=== PATIENT | male | born 1930 | race Caucasian/White ===

== ENCOUNTER 2017-05-05 17:57 | Inpatient (IN) | payer MEDICARE, BC, OTHER ==
[~2017-05-05] VITALS: Ht 172.7 cm; Wt 61.5 kg
[~2017-05-05 17:57] MED LIST: FINA5TAB11 PO; GABA-530 PO; HYDR-3686 PO; LACT-28 PO; NICO-687 TD; OLAN2.5T28 PO; TRAZ-143 PO; VENL-190 PO
[2017-05-05] MEDS ORDERED: normal saline 1000ML IV soln IVB ONE (18:30)
[2017-05-05] MEDS ORDERED: acetaminophen 650mg rectal suppository RC ONE (18:30)
[2017-05-05] MEDS ORDERED: ondansetron/PF 4mg/2ml inj IV ONE (18:35)
[2017-05-05 19:05] LABS: BASOPHILS % (AUTO) 0.1 % (0-1); EOSINOPHILS % (AUTO) 0 % (0-6); HEMATOCRIT 35.7 % (42.0-52.0); HEMOGLOBIN 12.2 g/dl (14.0-17.9); LYMPHOCYTES # (AUTO) 0.2 X10'3 (1.1-4.8); LYMPHOCYTES % (AUTO) 1.9 % (21-51); MEAN CORPUSCULAR HEMOGLOBIN 34.1 PG (27.0-31.0); MEAN CORPUSCULAR VOLUME 100.2 FL (78-98); MEAN PLATELET VOLUME 7.8 FL (7.4-10.4); MONOCYTES # (AUTO) 0.5 X10'3 (0-0.9); MONOCYTES % (AUTO) 4.4 % (2-12); NEUTROPHILS # (AUTO) 10.3 X10'3 (1.8-7.7); NEUTROPHILS % (AUTO) 93.6 % (42-75); PLATELET COUNT 195 X10'3 (140-440); RED BLOOD COUNT 3.57 X10'6 (4.70-6.10); RED CELL DISTRIBUTION WIDTH 13.8 % (11.5-14.5)
[2017-05-05 19:12] LABS: INR 1.1 INR; PARTIAL THROMBOPLASTIN TIME 24 SECONDS (22-32); PROTHROMBIN TIME 11.2 SECONDS (9.0-12.0)
[2017-05-05 19:17] LABS: CLARITY,URINE Cloudy (Clear); COLOR,URINE Yellow (Yellow); GLUCOSE, URINE Negative (Neg); KETONES,URINE Negative (Neg); LEUKOCYTE ESTERASE ,URINE Moderate (Neg); NITRITES, URINE Negative (Neg); OCCULT BLOOD,URINE Moderate (Neg); PH,URINE 5.5 (4.8-8.0); PROTEIN,URINE Negative (Neg)
[2017-05-05 19:25] LABS: UA COLLECTION TYPE FOLEY CATH
[2017-05-05 19:26] LABS: BACTERIA,URINE 4+ /HPF (Neg); SQUAMOUS EPITHELIAL CELL,UR FEW /LPF (FEW); WBC,URINE 20-30 /HPF (0-4)
[2017-05-05 19:28] LABS: ALANINE AMINOTRANSFERASE 23 U/L (12-78); ALBUMIN 2.9 G/DL (3.4-5.0); ALBUMIN/GLOBULIN RATIO 0.9 (1.1-1.5); ALKALINE PHOSPHATASE 76 IU/L (46-116); ANION GAP 7 (8-16); ASPARTATE AMINO TRANSFERASE 26 U/L (10-37); BILIRUBIN,TOTAL 0.3 MG/DL (0.1-1.0); BLOOD UREA NITROGEN 27 MG/DL (7-18); BUN/CREATININE RATIO 33.8 (5.4-32.0); CALCIUM 8.9 MG/DL (8.5-10.1); CHLORIDE 108 MMOL/L (99-107); GLUCOSE 139 MG/DL (70-104); SODIUM 142 MMOL/L (135-145); TOTAL CARBON DIOXIDE 27.2 MMOL/L (24-32); TOTAL PROTEIN 6.1 G/DL (6.4-8.2); eGFR > 90 ML/MIN
[2017-05-05 19:50] LABS: TOTAL CELLS COUNTED 100
[2017-05-05 19:51] LABS: LARGE PLATELETS FEW; PLATELET ESTIMATE NORMAL
[2017-05-05 19:52] LABS: GASTRIC OCCULT BLOOD POSITIVE (Neg)
[2017-05-05] MEDS ORDERED: piperacillin/tazo 3.375gm/50ml 50 ML IV SCH (21:30)
[2017-05-05] MEDS ORDERED: piperacillin/tazo 3.375gm/50ml 50 ML IV ONE (21:33)
[2017-05-05] MEDS ORDERED: NORepinephrine 8mg/ 250ml NS 250 ML IV SCH (22:15)
[2017-05-05] MEDS ORDERED: NORepinephrine 8mg/ 250ml NS 250 ML IV PRN (23:32)
[2017-05-05] MEDS ORDERED: magnesium hydroxide 30ml (MOM) UD suspension PO PRN (23:35)
[2017-05-05] MEDS ORDERED: morphine 2 MG/ML inj. syringe IV PRN ×2 (23:35)
[2017-05-05] MEDS ORDERED: acetaminophen 325mg tablet PO PRN ×2 (23:35)
[2017-05-05] MEDS ORDERED: ondansetron/PF 4mg/2ml inj IV PRN (23:35)
[2017-05-05] MEDS ORDERED: potassium Cl 40MEQ/250ML bag 250 ML IV PRN (23:35)
[2017-05-05] MEDS ORDERED: potassium Cl 20 mEq SR tablet PO PRN ×2 (23:35)
[2017-05-05] MEDS ORDERED: potassium Cl 40MEQ/250ML bag 250 ML IV SCH (23:35)
[2017-05-06 00:16] LABS: OXYGEN SATURATION (MIXED VEN) 80.6 % (60-80); PO2 MIXED VENOUS (TEMP COR) 58.9 mmHg (35-46)
[2017-05-06] MEDS: piperacillin/tazo 3.375gm/50ml 50 ML IV SCH ×4 (02:00→20:58)
[2017-05-06] MEDS: K, MAG and/or Phos replacement - Verify level? MC SCH ×2 (03:24→08:00)
[2017-05-06 04:33] VITALS: BP 90/51
[2017-05-06] MEDS ORDERED: albuterol 2.5 MG/3 ML nebule NEB PRN (04:50)
[2017-05-06 06:00] VITALS: BP 99/61
[2017-05-06 06:01] LABS: BASOPHILS % (AUTO) 0.2 % (0-1); EOSINOPHILS # (AUTO) 0.1 X10'3 (0-0.9); EOSINOPHILS % (AUTO) 1.4 % (0-6); HEMATOCRIT 31.7 % (42.0-52.0); HEMOGLOBIN 10.8 g/dl (14.0-17.9); LYMPHOCYTES # (AUTO) 0.4 X10'3 (1.1-4.8); LYMPHOCYTES % (AUTO) 3.9 % (21-51); MEAN CORPUSCULAR HEMOGLOBIN 34.3 PG (27.0-31.0); MEAN CORPUSCULAR VOLUME 100.8 FL (78-98); MEAN PLATELET VOLUME 8.3 FL (7.4-10.4); MONOCYTES # (AUTO) 0.4 X10'3 (0-0.9); MONOCYTES % (AUTO) 4.3 % (2-12); NEUTROPHILS # (AUTO) 8.4 X10'3 (1.8-7.7); NEUTROPHILS % (AUTO) 90.2 % (42-75); PLATELET COUNT 166 X10'3 (140-440); RED BLOOD COUNT 3.14 X10'6 (4.70-6.10); RED CELL DISTRIBUTION WIDTH 13.6 % (11.5-14.5); WHITE BLOOD COUNT 9.3 X10'3 (4.5-11.0)
[2017-05-06 07:23] LABS: ALANINE AMINOTRANSFERASE 20 U/L (12-78); ALBUMIN 2.4 G/DL (3.4-5.0); ALBUMIN/GLOBULIN RATIO 0.8 (1.1-1.5); ALKALINE PHOSPHATASE 64 IU/L (46-116); ANION GAP 8 (8-16); ASPARTATE AMINO TRANSFERASE 26 U/L (10-37); BILIRUBIN,TOTAL 0.7 MG/DL (0.1-1.0); BLOOD UREA NITROGEN 23 MG/DL (7-18); BUN/CREATININE RATIO 32.9 (5.4-32.0); CALCIUM 8.3 MG/DL (8.5-10.1); CHLORIDE 113 MMOL/L (99-107); GLUCOSE 102 MG/DL (70-104); POTASSIUM 4.2 MMOL/L (3.5-5.1); SODIUM 146 MMOL/L (135-145); TOTAL CARBON DIOXIDE 24.8 MMOL/L (24-32); TOTAL PROTEIN 5.4 G/DL (6.4-8.2); eGFR > 90 ML/MIN
[2017-05-06] MEDS: enoxaparin 40mg/0.4ml syringe SUBCUT SCH (07:52)
[2017-05-06] MEDS: pantoprazole 40 MG vial IV SCH (07:52)
[2017-05-06] MEDS: lactobacillus rhamnosus 10,000 MMU CELLS/CAPSULE PO SCH ×2 (07:53→17:30)
[2017-05-06] MEDS: normal saline 1000ml 1,000 ML IV SCH ×3 (09:32→14:08)
[2017-05-06 11:00] VITALS: BP 108/60
[2017-05-06] MEDS ORDERED: TAMS0.4C32 PO (13:26)
[2017-05-06] MEDS ORDERED: VENL75TA4 PO (13:26)
[2017-05-06] MEDS ORDERED: TRAZ-146 PO (13:26)
[2017-05-06] MEDS ORDERED: DOCU250C4 PO (13:26)
[2017-05-06] MEDS ORDERED: SENN-161 PO (13:26)
[2017-05-06] MEDS ORDERED: CLON0.5T4 PO (13:26)
[2017-05-06] MEDS ORDERED: HYDR-3686 PO (13:26)
[2017-05-06] MEDS ORDERED: OLAN10TA19 PO (13:26)
[2017-05-06] MEDS ORDERED: QUET100T33 PO (13:26)
[2017-05-06 15:00] VITALS: BP 106/50
[2017-05-06] MEDS ORDERED: docusate sod 250mg capsule PO PRN (15:00)
[2017-05-06] MEDS ORDERED: sennosides 8.6mg tablet PO PRN (15:00)
[2017-05-06] MEDS: clonazePAM 0.5mg tablet PO PRN (15:25)
[2017-05-06 18:00] VITALS: BP 95/52
[2017-05-06] MEDS: traZODone 50mg tablet PO SCH (21:00)
[2017-05-06] MEDS: venlafaxine 37.5mg tablet PO SCH (21:00)
[2017-05-06] MEDS ORDERED: non-formulary drug (Trazodone HCl 1 TAB) PO SCH (21:00)
[2017-05-06] MEDS: gabapentin 100mg capsule PO SCH (21:00)
[2017-05-06] MEDS ORDERED: VENLAFAXINE HCL PO SCH (21:00)
[2017-05-06] MEDS: quetiapine 100mg tablet PO SCH (21:01)
[2017-05-06] MEDS: olanzapine 10mg tablet PO SCH (21:01)
[2017-05-06 22:00] VITALS: BP 113/58
[2017-05-07] MEDS: piperacillin/tazo 3.375gm/50ml 50 ML IV SCH ×4 (01:29→19:44)
[2017-05-07] MEDS: clonazePAM 0.5mg tablet PO PRN (01:30)
[2017-05-07] MEDS: normal saline 1000ml 1,000 ML IV SCH ×2 (01:34→16:03)
[2017-05-07 05:00] LABS: BASOPHILS % (AUTO) 0.6 % (0-1); EOSINOPHILS # (AUTO) 0.3 X10'3 (0-0.9); EOSINOPHILS % (AUTO) 5.8 % (0-6); HEMATOCRIT 28.8 % (42.0-52.0); HEMOGLOBIN 9.8 g/dl (14.0-17.9); LYMPHOCYTES # (AUTO) 1.1 X10'3 (1.1-4.8); LYMPHOCYTES % (AUTO) 20.1 % (21-51); MEAN CORPUSCULAR HEMOGLOBIN 34.3 PG (27.0-31.0); MEAN CORPUSCULAR HGB CONC 34.1 % (33.0-36.5); MEAN CORPUSCULAR VOLUME 100.5 FL (78-98); MEAN PLATELET VOLUME 8.1 FL (7.4-10.4); MONOCYTES # (AUTO) 0.8 X10'3 (0-0.9); MONOCYTES % (AUTO) 14.7 % (2-12); NEUTROPHILS # (AUTO) 3.2 X10'3 (1.8-7.7); NEUTROPHILS % (AUTO) 58.8 % (42-75); PLATELET COUNT 146 X10'3 (140-440); RED BLOOD COUNT 2.87 X10'6 (4.70-6.10); RED CELL DISTRIBUTION WIDTH 13.9 % (11.5-14.5); WHITE BLOOD COUNT 5.4 X10'3 (4.5-11.0)
[2017-05-07 05:15] LABS: ALANINE AMINOTRANSFERASE 22 U/L (12-78); ALBUMIN 2.3 G/DL (3.4-5.0); ALBUMIN/GLOBULIN RATIO 0.9 (1.1-1.5); ALKALINE PHOSPHATASE 53 IU/L (46-116); ANION GAP 6 (8-16); ASPARTATE AMINO TRANSFERASE 27 U/L (10-37); BILIRUBIN,TOTAL 0.3 MG/DL (0.1-1.0); BLOOD UREA NITROGEN 21 MG/DL (7-18); CALCIUM 8.2 MG/DL (8.5-10.1); CHLORIDE 112 MMOL/L (99-107); GLUCOSE 87 MG/DL (70-104); POTASSIUM 3.6 MMOL/L (3.5-5.1); SODIUM 145 MMOL/L (135-145); TOTAL CARBON DIOXIDE 26.6 MMOL/L (24-32); TOTAL PROTEIN 4.9 G/DL (6.4-8.2); eGFR > 90 ML/MIN
[2017-05-07 06:00] VITALS: BP 103/56
[2017-05-07] MEDS: K, MAG and/or Phos replacement - Verify level? MC SCH (08:00)
[2017-05-07] MEDS: hydrOXYzine 25 MG tablet PO PRN (10:31)
[2017-05-07] MEDS: tamsulosin 0.4mg capsule PO SCH (10:31)
[2017-05-07] MEDS: lactobacillus rhamnosus 10,000 MMU CELLS/CAPSULE PO SCH ×2 (10:31→17:09)
[2017-05-07] MEDS: pantoprazole 40 MG vial IV SCH (10:32)
[2017-05-07] MEDS: enoxaparin 40mg/0.4ml syringe SUBCUT SCH (10:32)
[2017-05-07] MEDS: gabapentin 100mg capsule PO SCH ×3 (10:32→20:29)
[2017-05-07 11:00] VITALS: BP 115/63
[2017-05-07] MEDS: finasteride 5mg tablet PO SCH (13:37)
[2017-05-07 15:00] VITALS: BP 125/69
[2017-05-07 19:00] VITALS: BP 118/69
[2017-05-07] MEDS: olanzapine 10mg tablet PO SCH (20:29)
[2017-05-07] MEDS: traZODone 50mg tablet PO SCH (20:29)
[2017-05-07] MEDS: venlafaxine 37.5mg tablet PO SCH (20:29)
[2017-05-07] MEDS: quetiapine 100mg tablet PO SCH (20:29)
[2017-05-07 23:00] VITALS: BP 118/71
[2017-05-08] MEDS: piperacillin/tazo 3.375gm/50ml 50 ML IV SCH ×2 (01:46→09:18)
[2017-05-08 03:00] VITALS: BP 136/76
[2017-05-08] MEDS: normal saline 1000ml 1,000 ML IV SCH (04:37)
[2017-05-08 05:46] LABS: ALANINE AMINOTRANSFERASE 18 U/L (12-78); ALBUMIN 2.5 G/DL (3.4-5.0); ALBUMIN/GLOBULIN RATIO 0.9 (1.1-1.5); ALKALINE PHOSPHATASE 56 IU/L (46-116); ANION GAP 4 (8-16); ASPARTATE AMINO TRANSFERASE 29 U/L (10-37); BILIRUBIN,TOTAL 0.4 MG/DL (0.1-1.0); BLOOD UREA NITROGEN 11 MG/DL (7-18); BUN/CREATININE RATIO 18.3 (5.4-32.0); CALCIUM 8.8 MG/DL (8.5-10.1); CHLORIDE 112 MMOL/L (99-107); GLUCOSE 92 MG/DL (70-104); POTASSIUM 3.9 MMOL/L (3.5-5.1); SODIUM 145 MMOL/L (135-145); TOTAL CARBON DIOXIDE 29.3 MMOL/L (24-32); TOTAL PROTEIN 5.4 G/DL (6.4-8.2); eGFR > 90 ML/MIN
[2017-05-08 05:47] LABS: BASOPHILS % (AUTO) 0.5 % (0-1); EOSINOPHILS # (AUTO) 0.4 X10'3 (0-0.9); EOSINOPHILS % (AUTO) 6.2 % (0-6); HEMATOCRIT 33.1 % (42.0-52.0); HEMOGLOBIN 11.4 g/dl (14.0-17.9); LYMPHOCYTES % (AUTO) 17.5 % (21-51); MEAN CORPUSCULAR HEMOGLOBIN 34.7 PG (27.0-31.0); MEAN CORPUSCULAR HGB CONC 34.3 % (33.0-36.5); MEAN CORPUSCULAR VOLUME 101.1 FL (78-98); MEAN PLATELET VOLUME 8.1 FL (7.4-10.4); MONOCYTES # (AUTO) 0.7 X10'3 (0-0.9); MONOCYTES % (AUTO) 11.6 % (2-12); NEUTROPHILS # (AUTO) 3.8 X10'3 (1.8-7.7); NEUTROPHILS % (AUTO) 64.2 % (42-75); PLATELET COUNT 169 X10'3 (140-440); RED BLOOD COUNT 3.27 X10'6 (4.70-6.10); RED CELL DISTRIBUTION WIDTH 13.7 % (11.5-14.5); WHITE BLOOD COUNT 5.9 X10'3 (4.5-11.0)
[2017-05-08 07:00] VITALS: BP 142/80
[2017-05-08] MEDS: K, MAG and/or Phos replacement - Verify level? MC SCH (08:00)
[2017-05-08] MEDS: pantoprazole 40mg Tablet.DR PO SCH (09:18)
[2017-05-08] MEDS: gabapentin 100mg capsule PO SCH ×3 (09:18→21:08)
[2017-05-08] MEDS: hydrOXYzine 25 MG tablet PO PRN (09:18)
[2017-05-08] MEDS: tamsulosin 0.4mg capsule PO SCH (09:18)
[2017-05-08] MEDS: lactobacillus rhamnosus 10,000 MMU CELLS/CAPSULE PO SCH ×2 (09:18→17:22)
[2017-05-08] MEDS: finasteride 5mg tablet PO SCH (09:19)
[2017-05-08] MEDS: enoxaparin 40mg/0.4ml syringe SUBCUT SCH (09:19)
[2017-05-08 11:00] VITALS: BP 123/77
[2017-05-08] MEDS ORDERED: haloperidol lactate 5mg/ml inj IM PRN (11:50)
[2017-05-08] MEDS: clonazePAM 0.5mg tablet PO PRN (14:39)
[2017-05-08 15:00] VITALS: BP 129/66
[2017-05-08] MEDS: amox tr/potassium clavulanate 500mg/125mg TAB PO SCH (17:23)
[2017-05-08 19:00] VITALS: BP 132/64
[2017-05-08] MEDS: olanzapine 10mg tablet PO SCH (21:07)
[2017-05-08] MEDS: traZODone 50mg tablet PO SCH (21:08)
[2017-05-08] MEDS: quetiapine 100mg tablet PO SCH (21:08)
[2017-05-08] MEDS: venlafaxine 37.5mg tablet PO SCH (21:11)
[2017-05-08 23:00] VITALS: BP 119/60
[2017-05-09 03:00] VITALS: BP 116/64
[2017-05-09 06:43] VITALS: BP 119/60
[2017-05-09 06:49] LABS: BASOPHILS % (AUTO) 0.8 % (0-1); EOSINOPHILS # (AUTO) 0.4 X10'3 (0-0.9); EOSINOPHILS % (AUTO) 8.6 % (0-6); HEMATOCRIT 33.2 % (42.0-52.0); HEMOGLOBIN 11.4 g/dl (14.0-17.9); LYMPHOCYTES # (AUTO) 0.9 X10'3 (1.1-4.8); LYMPHOCYTES % (AUTO) 19.7 % (21-51); MEAN CORPUSCULAR HEMOGLOBIN 34.5 PG (27.0-31.0); MEAN CORPUSCULAR HGB CONC 34.2 % (33.0-36.5); MEAN CORPUSCULAR VOLUME 100.8 FL (78-98); MEAN PLATELET VOLUME 7.6 FL (7.4-10.4); MONOCYTES # (AUTO) 0.5 X10'3 (0-0.9); MONOCYTES % (AUTO) 10.8 % (2-12); NEUTROPHILS # (AUTO) 2.7 X10'3 (1.8-7.7); NEUTROPHILS % (AUTO) 60.1 % (42-75); PLATELET COUNT 182 X10'3 (140-440); RED BLOOD COUNT 3.29 X10'6 (4.70-6.10); RED CELL DISTRIBUTION WIDTH 13.8 % (11.5-14.5); WHITE BLOOD COUNT 4.5 X10'3 (4.5-11.0)
[2017-05-09 07:03] LABS: ALANINE AMINOTRANSFERASE 31 U/L (12-78); ALBUMIN 2.5 G/DL (3.4-5.0); ALBUMIN/GLOBULIN RATIO 0.9 (1.1-1.5); ALKALINE PHOSPHATASE 57 IU/L (46-116); ANION GAP 2 (8-16); ASPARTATE AMINO TRANSFERASE 26 U/L (10-37); BILIRUBIN,TOTAL 0.4 MG/DL (0.1-1.0); BLOOD UREA NITROGEN 12 MG/DL (7-18); BUN/CREATININE RATIO 17.1 (5.4-32.0); CALCIUM 8.6 MG/DL (8.5-10.1); CHLORIDE 110 MMOL/L (99-107); GLUCOSE 82 MG/DL (70-104); POTASSIUM 3.8 MMOL/L (3.5-5.1); SODIUM 143 MMOL/L (135-145); TOTAL CARBON DIOXIDE 30.8 MMOL/L (24-32); TOTAL PROTEIN 5.4 G/DL (6.4-8.2); eGFR > 90 ML/MIN
[2017-05-09] MEDS: K, MAG and/or Phos replacement - Verify level? MC SCH (08:00)
[2017-05-09] MEDS: pantoprazole 40mg Tablet.DR PO SCH (09:12)
[2017-05-09] MEDS: amox tr/potassium clavulanate 500mg/125mg TAB PO SCH (09:12)
[2017-05-09] MEDS: lactobacillus rhamnosus 10,000 MMU CELLS/CAPSULE PO SCH ×2 (09:12→17:19)
[2017-05-09] MEDS: tamsulosin 0.4mg capsule PO SCH (09:12)
[2017-05-09] MEDS: finasteride 5mg tablet PO SCH (09:12)
[2017-05-09] MEDS: enoxaparin 40mg/0.4ml syringe SUBCUT SCH (09:13)
[2017-05-09] MEDS: gabapentin 100mg capsule PO SCH ×2 (09:13→13:32)
[2017-05-09 11:00] VITALS: BP 116/62
[2017-05-09 15:00] VITALS: BP 114/63
== END 2017-05-09 17:58 | disposition home or self-care (01) | DRG 871 ==
LOC: ER 17:57 → ED HOLD 23:32 → PCU 3S 05-06 03:30
PROVIDERS: ADMIT Internal Medicine Critical Care Medicine; ATTEND Internal Medicine Critical Care Medicine
PROC: 02HV33Z Insertion of Infusion Device into Superior Vena Cava, Percutaneous Approach (ICD-10-PCS; principal; 2017-05-05)
PROC: B548ZZA Ultrasonography of Superior Vena Cava, Guidance (ICD-10-PCS; 2017-05-05)
DX: A41.9 Sepsis, unspecified organism (principal); R65.21 Severe sepsis with septic shock; E86.1 Hypovolemia; F03.90 Unspecified dementia, unspecified severity, without behavioral disturbance, psychotic disturbance, mood disturbance, and anxiety; N30.91 Cystitis, unspecified with hematuria; K59.00 Constipation, unspecified; F41.9 Anxiety disorder, unspecified; I51.7 Cardiomegaly; F32.9 Major depressive disorder, single episode, unspecified; B96.20 Unspecified Escherichia coli [E. coli] as the cause of diseases classified elsewhere; Z66 Do not resuscitate; Z79.899 Other long term (current) drug therapy; Z79.01 Long term (current) use of anticoagulants
CPT/HCPCS: 36415; 36556; 71045; 71250; 74176; 80053; 81001; 82271; 82810; 83605; 84145; 85025; 85610; 85730; 87040; 87070; 87077; 87088; 87186; 92616; 94760; 96361; 96365; 96375; 97110; 97161; 97530; 99291; 99292; A4315; A4353; A6209; A6213; A6222; A6250; C1751; C9113; J1650; J2405; J2543; J3490; J7030; Q0177

== ENCOUNTER 2017-11-12 10:35 | Emergency (ER) | payer MEDICARE, BC, OTHER ==
[~2017-11-12] VITALS: Ht 177.8 cm; Wt 66.0 kg
[~2017-11-12 10:35] MED LIST changes: +CLON0.5T12 PO; +DOCU250C4 PO; -LACT-28 PO; -NICO-687 TD; +OLAN10TA19 PO; -OLAN2.5T28 PO; +QUET100T33 PO; +SENN-161 PO; +TAMS0.4C32 PO; -TRAZ-143 PO; +TRAZ-219 PO; -VENL-190 PO; +VENL75TA4 PO
[2017-11-12 10:47] VITALS: BP_DIAS 64
[2017-11-12] MEDS ORDERED: normal saline 1000ML IV soln IVB ONE (11:10)
[2017-11-12 11:45] LABS: BASOPHILS % (AUTO) 0.3 % (0-1); EOSINOPHILS # (AUTO) 0.1 X10'3 (0-0.9); EOSINOPHILS % (AUTO) 0.9 % (0-6); HEMATOCRIT 36.2 % (42.0-52.0); HEMOGLOBIN 11.9 g/dl (14.0-17.9); LYMPHOCYTES # (AUTO) 0.9 X10'3 (1.1-4.8); LYMPHOCYTES % (AUTO) 9.5 % (21-51); MEAN CORPUSCULAR HEMOGLOBIN 31.4 PG (27.0-31.0); MEAN CORPUSCULAR HGB CONC 32.8 % (33.0-36.5); MEAN CORPUSCULAR VOLUME 95.5 FL (78-98); MEAN PLATELET VOLUME 8.2 FL (7.4-10.4); MONOCYTES # (AUTO) 0.4 X10'3 (0-0.9); MONOCYTES % (AUTO) 3.9 % (2-12); NEUTROPHILS # (AUTO) 7.6 X10'3 (1.8-7.7); NEUTROPHILS % (AUTO) 85.4 % (42-75); PLATELET COUNT 249 X10'3 (140-440); RED BLOOD COUNT 3.79 X10'6 (4.70-6.10); RED CELL DISTRIBUTION WIDTH 15.9 % (11.5-14.5)
[2017-11-12 12:00] LABS: ALANINE AMINOTRANSFERASE 18 U/L (12-78); ALBUMIN 2.9 G/DL (3.4-5.0); ALBUMIN/GLOBULIN RATIO 0.7 (1.1-1.5); ALKALINE PHOSPHATASE 84 IU/L (46-116); ANION GAP 7 (8-16); ASPARTATE AMINO TRANSFERASE 13 U/L (10-37); BILIRUBIN,TOTAL 0.5 MG/DL (0.1-1.0); BLOOD UREA NITROGEN 26 MG/DL (7-18); BUN/CREATININE RATIO 27.1 (5.4-32.0); CALCIUM 9.5 MG/DL (8.5-10.1); CHLORIDE 110 MMOL/L (99-107); CREATININE 0.96 MG/DL (0.60-1.10); GLUCOSE 102 MG/DL (70-104); POTASSIUM 3.7 MMOL/L (3.5-5.1); SODIUM 148 MMOL/L (135-145); TOTAL CARBON DIOXIDE 31.4 MMOL/L (24-32); TOTAL PROTEIN 7.1 G/DL (6.4-8.2); eGFR 74 ML/MIN
[2017-11-12 12:08] LABS: MAGNESIUM 2.4 MG/DL (1.5-2.4)
[2017-11-12 12:26] LABS: CLARITY,URINE Turbid (Clear); COLOR,URINE Yellow (Yellow); GLUCOSE, URINE Negative (Neg); KETONES,URINE Negative (Neg); LEUKOCYTE ESTERASE ,URINE Trace (Neg); NITRITES, URINE Negative (Neg); OCCULT BLOOD,URINE Trace-Intact (Neg); PROTEIN,URINE Negative (Neg)
[2017-11-12 12:27] LABS: UA COLLECTION TYPE STRAIGHT CATH
[2017-11-12 12:32] LABS: AMORPHOUS URATES 3+; BACTERIA,URINE NONE SEEN /HPF (Neg); MUCUS STRANDS FEW /LPF (Neg); SQUAMOUS EPITHELIAL CELL,UR NONE SEEN /LPF (FEW); WBC,URINE 0-4 /HPF (0-4)
[2017-11-12] MEDS ORDERED: SULF1TAB49 PO (12:57)
[2017-11-12 13:52] VITALS: BP_SYST 100
== END 2017-11-12 13:54 ==
LOC: ER 10:35
DX: R31.9 Hematuria, unspecified (principal); J40 Bronchitis, not specified as acute or chronic; N39.0 Urinary tract infection, site not specified; Z79.899 Other long term (current) drug therapy
CPT/HCPCS: 36415; 71045; 80053; 81001; 83735; 83880; 84145; 84484; 85025; 93005; 99285; A4310; A4353; J7030